=== PATIENT | male | born 1960 | race Hispanic/Latino ===

== ENCOUNTER 2024-07-23 13:11 | Inpatient (IN) | payer BC ==
[~2024-07-23] VITALS: Ht 177.8 cm; Wt 122.5 kg
[2024-07-23 11:26] LABS: BASOPHILS % 0.4 % (0.0-1.0); EOSINOPHILS # (AUTO) 0.1 (0.0-0.4); EOSINOPHILS % 1.4 % (0.0-6.0); HEMOGLOBIN 14.6 g/dL (14.0-18.0); LYMPHOCYTES # (AUTO) 1.5 (1.0-3.2); LYMPHOCYTES % 17.8 % (18.0-39.1); MEAN CORPUSCULAR HEMOGLOBIN 32.2 pg (28-32); MEAN CORPUSCULAR HGB CONC 32.4 g/dL (31-35); MEAN CORPUSCULAR VOLUME 99.3 fL (81-99); MONOCYTES # (AUTO) 0.7 (0.2-0.8); MONOCYTES % 8.7 % (4.4-11.3); NEUTROPHILS # (AUTO) 6.1 (2.1-6.9); NEUTROPHILS % 71.5 % (38.7-80.0); PLATELET COUNT 232 x10e3/uL (140-360); RED BLOOD COUNT 4.53 x10e6/uL (4.3-5.7); RED CELL DISTRIBUTION WIDTH 12.2 % (11.7-14.4); WHITE BLOOD COUNT 8.52 x10e3/uL (4.8-10.8)
[2024-07-23] MEDS: SODIUM CHLORIDE 0.9% 1000ML 1,000 ML ONE (12:52)
[2024-07-23] MEDS: CEFAZOLIN SODIUM 2 GM ONE (12:53)
[2024-07-23] MEDS: GENTAMICIN 80MG/NS 100 ML 200 ML IV ONE (12:53)
[~2024-07-23 13:11] MED LIST: ASPIRIN EC81 MG PO; ATORVASTATIN CA80 MG PO; CEPHALEXIN500 MG PO; FLOMAX0.4 MG PO; IOPAMIDOL 610MG/1ML 300 MG/ML VIAL IV ONE; KETOROLAC TROMETHAMINE 30 MG/ML VIAL ONE; LIDOCAINE HCL 2% LOCAL INJ 5 ML SDV VIAL INJ ONE; LISINOPRIL10 MG PO; METOPROLOL TART50 MG PO; PROPOFOL IV EMULSION 10 MG/ML 20 ML VIAL ONE; ROCURONIUM BROMIDE 10 MG/ML 5ML VIAL IV ONE; SEVOFLURANE INHAL SOLN 250 ML PEN BTL ONE; SUCCINYLCHOLINE CHLORIDE 20 MG/ML 10ML VIAL ONE; SUGAMMADEX SODIUM 200 MG/2 ML VIAL IV ONE; TRIBENZOR 20-51 EACH PO
[2024-07-23 16:00] VITALS: BP 170/85; PULSE 81; RESP 20; TEMP 97.1; O2SAT 100
[2024-07-23 16:08] VITALS: BP 167/83; PULSE 86; RESP 16; TEMP 97.9; O2SAT 98
[2024-07-23] MEDS: ACETAMINOPHEN/CODEINE 300MG - 30MG TAB PO PRN ×2 (16:09→22:01)
[2024-07-23] MEDS: LEVOFLOXACIN 500MG/D5W 100ML 100 ML IV SCH (16:09)
[2024-07-23] MEDS: DEXTROSE 5%/0.9% SOD CHL 1,000 ML IV SCH (16:09)
[2024-07-23 17:48] VITALS: BP 168/76; PULSE 82
[2024-07-23] MEDS: OLMESARTAN 20 MG TAB PO SCH (17:51)
[2024-07-23] MEDS: TAMSULOSIN HCL 0.4 MG CAP PO SCH (17:51)
[2024-07-23] MEDS: METOPROLOL TARTRATE 50 MG TAB PO SCH (17:52)
[2024-07-23] MEDS: AMLODIPINE BESYLATE 5 MG TAB PO SCH (17:52)
[2024-07-23 20:00] VITALS: BP 141/71; PULSE 70; RESP 18; TEMP 97.9; O2SAT 98
[2024-07-23] MEDS ORDERED: NON-FORMULARY MEDICATION (Atorvastatin Calcium 80 MG) PO SCH (21:00)
[2024-07-23] MEDS: ATORVASTATIN 40 MG TAB PO SCH (22:00)
[2024-07-24] VITALS (8 sets, daily range): BP systolic 112–151; BP diastolic 60–69; PULSE 64–74; RESP 16–19; TEMP 97.4–98.2; O2SAT 96–98
[2024-07-24 06:20] LABS: BASOPHILS % 0.1 % (0.0-1.0); EOSINOPHILS % 0.3 % (0.0-6.0); HEMOGLOBIN 13.2 g/dL (14.0-18.0); LYMPHOCYTES # (AUTO) 1.5 (1.0-3.2); LYMPHOCYTES % 15.2 % (18.0-39.1); MEAN CORPUSCULAR HEMOGLOBIN 31.9 pg (28-32); MEAN CORPUSCULAR HGB CONC 31.4 g/dL (31-35); MEAN CORPUSCULAR VOLUME 101.4 fL (81-99); MONOCYTES # (AUTO) 0.8 (0.2-0.8); MONOCYTES % 8.3 % (4.4-11.3); NEUTROPHILS # (AUTO) 7.4 (2.1-6.9); NEUTROPHILS % 75.7 % (38.7-80.0); PLATELET COUNT 222 x10e3/uL (140-360); RED BLOOD COUNT 4.14 x10e6/uL (4.3-5.7); WHITE BLOOD COUNT 9.83 x10e3/uL (4.8-10.8)
[2024-07-24 06:57] LABS: ANION GAP 13.2 mmol/L (8-16); CALCIUM 8.2 mg/dL (8.4-10.2); CREATININE, SERUM 0.75 mg/dL (0.72-1.25); POTASSIUM 4.2 mmol/L (3.5-5.1)
[2024-07-25] VITALS: BP 151/66; PULSE 86; RESP 18; TEMP 98.3; O2SAT 95
[2024-07-25 04:00] VITALS: BP 159/73; PULSE 78; RESP 18; TEMP 97.9; O2SAT 97
[2024-07-25 07:51] VITALS: BP 150/78; PULSE 65; RESP 16; TEMP 98.1; O2SAT 96
[2024-07-25] MEDS ORDERED: MAGNESIUM HYDROXIDE 30 ML UDC PO PRN (09:45)
[2024-07-25] MEDS: POTASSIUM CHLORIDE 10MEQ EA PO ONE (10:33)
[2024-07-25] MEDS: SENNA-S TABLET PO SCH (10:34)
[2024-07-25] MEDS: FUROSEMIDE INJ 10 MG/ML 4 ML VIAL IV ONE (10:34)
[2024-07-25 11:47] VITALS: BP 130/72; PULSE 59; RESP 17; TEMP 97.3; O2SAT 97
[2024-07-25] MEDS: TOLTERODINE TARTRATE 2 MG TAB PO SCH (12:28)
[2024-07-25 16:08] VITALS: BP 142/69; PULSE 74; RESP 17; TEMP 98; O2SAT 95
[2024-07-25 21:42] VITALS: BP 156/84; PULSE 80; RESP 17; TEMP 98.4; O2SAT 98
[2024-07-26] VITALS: BP 106/58; PULSE 57; RESP 18; TEMP 97.7; O2SAT 99
[2024-07-26 04:00] VITALS: BP 149/70; PULSE 71; RESP 18; TEMP 98; O2SAT 99
[2024-07-26 05:39] LABS: BASOPHILS % 0.4 % (0.0-1.0); EOSINOPHILS # (AUTO) 0.2 (0.0-0.4); HEMATOCRIT 42.3 % (38.2-49.6); HEMOGLOBIN 13.5 g/dL (14.0-18.0); LYMPHOCYTES # (AUTO) 1.9 (1.0-3.2); MEAN CORPUSCULAR HEMOGLOBIN 32.1 pg (28-32); MEAN CORPUSCULAR HGB CONC 31.9 g/dL (31-35); MEAN CORPUSCULAR VOLUME 100.5 fL (81-99); MONOCYTES # (AUTO) 0.7 (0.2-0.8); MONOCYTES % 9.9 % (4.4-11.3); NEUTROPHILS # (AUTO) 4.6 (2.1-6.9); NEUTROPHILS % 62.4 % (38.7-80.0); PLATELET COUNT 219 x10e3/uL (140-360); RED BLOOD COUNT 4.21 x10e6/uL (4.3-5.7); RED CELL DISTRIBUTION WIDTH 12.3 % (11.7-14.4); WHITE BLOOD COUNT 7.41 x10e3/uL (4.8-10.8)
[2024-07-26 06:25] LABS: ANION GAP 12.8 mmol/L (8-16); CALCIUM 8.8 mg/dL (8.4-10.2); CREATININE, SERUM 0.74 mg/dL (0.72-1.25); POTASSIUM 3.8 mmol/L (3.5-5.1)
[2024-07-26 08:00] VITALS: BP 149/70; PULSE 71; RESP 18; TEMP 98; O2SAT 99
[2024-07-26 09:29] VITALS: BP 195/89; PULSE 95; RESP 17; TEMP 98.1; O2SAT 94
[2024-07-26 10:30] VITALS: BP 161/70
== END 2024-07-26 13:44 | disposition home or self-care (01) | DRG 713 ==
LOC: OR 13:11 → PACU V 15:13 → MED/SURG 16:00
PROVIDERS: ADMIT Internal Medicine; ATTEND Internal Medicine
PROC: 0T7D8ZZ Dilation of Urethra, Via Natural or Artificial Opening Endoscopic (ICD-10-PCS; 2024-07-23)
PROC: 0TCB8ZZ Extirpation of Matter from Bladder, Via Natural or Artificial Opening Endoscopic (ICD-10-PCS; 2024-07-23)
PROC: 0VT08ZZ Resection of Prostate, Via Natural or Artificial Opening Endoscopic (ICD-10-PCS; principal; 2024-07-23 13:16)
DX: N40.1 Benign prostatic hyperplasia with lower urinary tract symptoms (principal); D62 Acute posthemorrhagic anemia; N13.8 Other obstructive and reflux uropathy; R33.8 Other retention of urine; R31.0 Gross hematuria; N35.919 Unspecified urethral stricture, male, unspecified site; I10 Essential (primary) hypertension; E78.5 Hyperlipidemia, unspecified
CPT/HCPCS: 36415; 71046; 80048; 85025; 88305; 93005; J0330; J0690; J1580; J1885; J1940; J1956; J2003; J7030; J7042